=== PATIENT | female | born 1965 | race Caucasian/White ===

== ENCOUNTER 2016-06-19 16:19 | Emergency (ER) | payer MEDICARE, MEDICAID ==
[2016-06-19] MEDS ORDERED: methylPREDNISolone Sod Succ/PF 125 MG/2 ML VIAL ONE (16:37)
[2016-06-19] MEDS ORDERED: diphenhydrAMINE HCl 50 MG/ML 1 ML VIAL ONE ×2 (16:37→16:38)
--- NOTE | 2016-06-19 21:05 | ERRECORD ---
[facility] EMERGENCY RECORD HPI ALLERGY (16:30 DHAM) CHIEF COMPLAINT: Patient presents for evaluation of itching, Patient presents for evaluation of shortness of breath, Patient presents for evaluation of tongue swelling. HISTORIAN: History provided by patient, Pt was stung by a bee 15 minutes ago at home and used her epipen within 1-2 minutes as she has had anaphylaxis "maybe 10 times." she feels sob, and is itching all over and like her tongue is swelling. She feels better now than she did at home. The stinger is still in her left upper arm. LOCATION: Symptoms are generalized. QUALITY: Dermal and respiratory, Throat tightness. SEVERITY: Current severity of pain rated as 0/10. TIME COURSE: Sudden onset of symptoms, 15, minutes prior to arrival, Symptoms are improving. ASSOCIATED WITH: Associated with rash, Associated with swelling, Associated with wheezing. RISK FACTORS: Patient has had previous allergy reactions, Anaphylactic reaction, ant and bee stings x 10 or so. RELIEVED BY: Patient's condition relieved by epinephrine pen. ROS (16:36 DHAM) CONSTITUTIONAL: Historian denies chills, denies fever. EYES: Historian denies eye pain, denies eye redness, denies eye discharge, reports itching. ENT: Historian reports rhinorrhea, reports voice changes. tongue swelling. CARDIOVASCULAR: Historian denies chest pain, denies diaphoresis, denies palpitations. RESPIRATORY: Historian denies cough, reports shortness of breath, denies sputum, denies stridor, reports wheezing. GI: Historian denies abdominal pain, denies nausea, denies vomiting. MUSCULOSKELETAL: Historian denies arthralgias, denies back pain, denies fall, denies injury. SKIN: Historian reports pruritis, bee stinger in left upper arm. NEUROLOGIC: Negative neurologic review of systems, Historian denies focal weakness, denies headache, denies mental status changes, denies paresthesias, denies seizures. ALLERGIC/IMMUNOLOGIC: h/o prior anaphylaxis. PAST MEDICAL HISTORY (16:31 ASA) MEDICAL HISTORY: Flu vaccine up to date, Tetanus immunization up to date, Pneumococcal vaccine up to date, Past medical history includes history of hypertension, musculoskeletal disorder. chronic back pain, Past medical history includes history of obesity, pulmonary disease. asthma, chronic bronchitis. &a-1R&a+25V*p+0X*[id number]*c202B*c15G*c2P*p-0X&a-25V&a+1R Name: Valerie Irwin : 1965 F51 MedRec: [id number] AcctNum: [id number] Prepared: SatJun 19, 2016 23:18 by Interface Page 1 of 5 pMD [facility] EMERGENCY RECORD FEMALE SURGICAL HISTORY: tumor removal, Surgical history of cholecystectomy, Surgical history of section, Surgical history of hysterectomy, Surgical history of orthopedic surgery, back x 5, Surgical history of tonsillectomy. PSYCHIATRIC HISTORY: Psychiatric history includes, anxiety, no history of suicidal ideations. SOCIAL HISTORY: Patient denies alcohol use, Patient denies drug use, Patient currently uses tobacco, smokes cigarettes, daily, Patient smokes 1/2 packs per day. KNOWN ALLERGIES No Known Drug Allergies CURRENT MEDICATIONS Lyrica: CAPSULE : Strength - 150 mg : ORAL Patient Dose: Oral. (16:32 ASAH) tiZANidine: CAPSULE : Strength - 4 mg : ORAL Patient Dose: Oral. (16:33 ASAH) traMADol: TABLET, EXTENDED RELEASE 24 HR : Strength - 300 mg : ORAL Patient Dose: Unknown. (16:34 ASAH) lisinopril: TABLET : Strength - 20 mg : ORAL Patient Dose: Oral. (16:34 ASAH) oxyCODONE: TABLET : Strength - 10 mg : ORAL Patient Dose: Oral As Needed. (16:35 ASAH) CeleBREX: CAPSULE : Strength - 200 mg : ORAL Patient Dose: Oral 2 times a day (before meals). (16:35 ASAH) Xanax: TABLET : Strength - 0.25 mg : ORAL Patient Dose: Oral As Needed. (16:35 ASAH) VITAL SIGNS VITAL SIGNS: BP: 83667/, Pulse: 72, Resp: 18, Temp: 98.0 (Oral), Pain: 0, O2 sat: 96, Time: 06/19/2016 16:20. (16:20 ASAH) BP: 173/96, Pulse: 65, Resp: 22, Pain: 0, Time: 06/19/2016 16:58. (16:58 ASAH) BP: 140/83, Pulse: 72, Resp: 22 (Non-Labored), Pain: 0, O2 sat: 96 on Room Air, Time: 06/19/2016 17:16. (17:16 LGIB) BP: 143/85, Pulse: 63, Resp: 19, O2 sat: 96, Time: 06/19/2016 18:50. (18:50 ASAH) BP: 118/97 (Right Arm), Pulse: 66, Resp: 21 (Non-Labored), Pain: 0, O2 sat: 95 on Room Air, Time: 06/19/2016 19:30. (19:30 AADK) BP: 111/81, Pulse: 66, Resp: 17, Temp: 97.6, Pain: 0, O2 sat: 95 on RA, &a-1R&a+25V*p+0X*k6228B*c202B*c15G*c2P*p-0X&a-25V&a+1R Name: Valerie Irwin : 1965 F51 MedRec: [id number] AcctNum: [id number] Prepared: Allie Jun 19, 2016 23:18 by Interface Page 2 of 5 pMD [facility] EMERGENCY RECORD Time: 06/19/2016 19:55. (19:55 AADK) PHYSICAL EXAM (16:45 DHAM) CONSTITUTIONAL: Vital Signs Reviewed, Patient afebrile, Pulse normal, Blood pressure normal, Respiratory rate normal, Normal pulse oximetry, Patient appears non toxic, Patient appears pain free but anxious and her voice is raspy, Patient alert and oriented to person, place and time, Nursing notes reviewed. HEAD: Head exam included findings of head atraumatic, normocephalic. EYES: Eye exam included findings of eyelids normal to inspection, Pupils equally round and reactive to light, Extraocular muscles intact, Conjunctiva normal, Sclera normal, Eye exam included findings of anterior chamber clear. ENT: Ear exam normal, external ear normal, tympanic membranes normal, no foreign body, no drainage, no bleeding, hearing normal, Nose exam normal, no nasal deformity, no bleeding from nares, no bleeding from hypopharynx, no foreign body visualized, no septal hematoma, no septal necrosis, No turbinate mucosa discharge, Pharynx exam normal, not injected, no swelling, symmetrical, Uvula exam normal, midline, no edema, Tonsil exam normal, not enlarged, no exudates, Mouth exam normal, mucous membranes moist, no drooling, no lesions, no lacerations, no tongue elevation, teeth normal. I do not appreciate any tongue swelling but she feels it subjectively. NECK: Neck exam included findings of normal range of motion, Trachea midline, Thyroid normal, no meningeal signs, no cervical adenopathy, no tenderness, no contusions, no ecchymosis. RESPIRATORY CHEST: Respiratory exam included findings of no respiratory distress, Breath sounds clear, rare diffuse wheezing, No rales, No rhonchi, Breath sounds moderately diminished diffusely, Chest exam included findings of chest movement symmetrical. CARDIOVASCULAR: Cardiovascular exam included findings of heart rate regular rate and rhythm, Heart sounds normal, normal S1, normal S2, no murmurs, no rub, no gallop. ABDOMEN FEMALE: Abdominal exam included findings of abdomen nontender, Bowel sounds normal, Liver normal, Spleen normal, no distension, no pulsatile masses, no peritoneal signs, no ventral hernia, obese. BACK: Back exam normal. UPPER EXTREMITY: Upper extremity exam normal, Upper extremity exam included findings of inspection normal, no abrasions, no contusions, no deformity, no lacerations, Range of motion normal, Motor strength normal, Sensation intact, Brachial pulse normal, Radial pulse normal. LOWER EXTREMITY: Lower extremity exam normal, Lower extremity exam included findings of inspection normal, no abrasions, no contusions, no deformity, no lacerations, Range of motion normal, Motor strength normal, Sensation intact, Pedal pulse normal, Silver's negative, no edema, no calf tenderness. NEURO: Neuro exam findings include patient oriented to person, &a-1R&a+25V*p+0X*f0718N*c202B*c15G*c2P*p-0X&a-25V&a+1R Name: Valerie Irwin : 1965 F51 MedRec: [id number] AcctNum: [id number] Prepared: Allie Jun 19, 2016 23:18 by Interface Page 3 of 5 pMD [facility] EMERGENCY RECORD place and time, Speech normal, Gait normal, Jaime coma scale 15, Memory normal, Cranial nerves intact, Deep tendon reflexes normal, no focal motor deficits, no focal sensory deficits. SKIN: Skin exam included findings of skin warm, dry, and normal in color, no rash. She did have a bee stinger in the left upper arm medially that I removed easily with forceps. LYMPHATIC: Lymphatic exam normal, Lymphatic exam included findings of cervical nodes normal. MEDICATION ADMINISTRATION SUMMARY Drug Name: methylPREDNISolone sodium succ injection, Dose Ordered: 125 mg, Route: IV Push, Status: Given, Time: 16:46 06/19/2016, Drug Name: diphenhydrAMINE injection, Dose Ordered: 50 mg, Route: IV Push, Status: Given, Time: 16:45 06/19/2016, Drug Name: *EPINEPHrine injection, Dose Ordered: 0.3 mg, Route: Intramuscular, Status: Given, Time: 16:28 06/19/2016, *Additional information available in notes, Detailed record available in Medication Service section. DOCTOR NOTES TEXT: Pt arrived 15 min after self dosing her 0.3mg epipen SQ. Given her raspy voice and wheezing and diffuse itching, I did redose to assure good IM dosing. Her pulse was in the low 70's. IV is started and she is aware of prolonged observation. I have given her a prescription for epipen so that she can have one when she leaves this evening. (16:50 DHAM) Pt has had no further wheezing and her voice is much less raspy. She never dropped her blood pressure and has been stable without evidence of rebound. she has an epipen at home and has never had an episode of rebound after using her pen. (19:40 DHAM) PROBLEM LIST No recorded problems DIAGNOSIS (19:44 DHAM) FINAL: PRIMARY: Anaphylaxis. PRESCRIPTION (16:42 DHAM) Epi E-Z Pen: AUTO-INJECTOR (EA) : 0.3 mg/0.3 mL (1:1,000) : INJECTION : Quantity: 0.3 Unit: mg Route: INJECTION Schedule: As Needed Dispense: 2 Unit: ea May substitute. Refills: No Refills . NOTES: use at first sign of anaphylaxis No refills. DISPOSITION PATIENT: Disposition Type: Discharge, Disposition: *Discharge Home. (19:44 DHAM) Patient left the department. (20:01 AADK) &a-1R&a+25V*p+0X*l1075A*c202B*c15G*c2P*p-0X&a-25V&a+1R Name: Valerie Irwin : 1965 [facility] MedRec: [id number] AcctNum: [id number] Prepared: SatJun 19, 2016 23:18 by Interface Page 4 of 5 pMD [facility] EMERGENCY RECORD Mckeon: SENG=ELMO Nova, Mikki ALTAMIRANO=ELMO [place], Zeina RACHANA=MD Taj, Aaron LGIB=ELMO Quiroz, Jasmin &a-1R&a+25V*p+0X*[id number]*c202B*c15G*c2P*p-0X&a-25V&a+1R Name: Valerie Irwin : 1965 [facility] MedRec: [id number] AcctNum: [id number] Prepared: SatJun 19, 2016 23:18 by Interface Page 5 of 5 pMD MTDD
--- NOTE | 2016-06-19 21:08 | PICIS ---
[facility] EMERGENCY RECORD TRIAGE (SatJun 19, 2016 16:27 ASAH) TRIAGE NOTES: pt was stung by a bee and used epi pen while at home. c/o tongue swelling. (SatJun 19, 2016 16:27 ASAH) PATIENT: NAME: Valerie Irwin, AGE: 51, GENDER: female, : Sat1965, TIME OF GREET: SatJun 19, 2016 16:19, PREFERRED LANGUAGE: Slovenian, ETHNICITY: Not or , ECODE BILLING MAP: [facility], SSN: [id number], Zip Code: [address], KG WEIGHT: 106.59, PHONE: , , , PERSON ID: [id number], PAYMENT: [employer], PCP: Kacey Graham Justin. (SatJun 19, 2016 16:27 ASA) COMPLAINT: Allergic Reaction. (SatJun 19, 2016 16:27 ASAH) ADMISSION: URGENCY: 3 Urgent, ADMISSION SOURCE: Home, TRANSPORT: CAR, BED: ER -01. (SatJun 19, 2016 16:27 ASAH) PAIN: No complaint of pain. (16:31 ASAH) IMMUNIZATIONS: Flu vaccine up to date, Tetanus immunization up to date, Pneumococcal vaccine up to date. (16:31 ASAH) SIRS SCORING: Heart Rate 55-109 (0), Temp range 96.8-101.1 (0), respiratory rate 12-24 (0), Mental status altered: yes (1), Infection or Suspected Infection: No. (16:31 ASAH) TRIAGE SCREENING: Patient denies suicidal ideation, Patient denies presence of domestic violence. (16:31 ASAH) LMP: LMP: Hysterectomy. (16:31 ASAH) PROVIDERS: TRIAGE NURSE: Tara France RN. (SatJun 19, 2016 16:27 ASAH) V[place] SIGNS: BP 52488/, Pulse 72, Resp 18, Temp 98.0, (Oral), Pain 0, O2 Sat 96, Time 06/19/2016 16:20. (16:20 ASAH) KNOWN ALLERGIES No Known Drug Allergies CURRENT MEDICATIONS Lyrica: CAPSULE : Strength - 150 mg : ORAL Patient Dose: Oral. (16:32 ASAH) tiZANidine: CAPSULE : Strength - 4 mg : ORAL Patient Dose: Oral. (16:33 ASAH) traMADol: TABLET, EXTENDED RELEASE 24 HR : Strength - 300 mg : ORAL Patient Dose: Unknown. (16:34 ASAH) lisinopril: TABLET : Strength - 20 mg : ORAL Patient Dose: Oral. (16:34 ASAH) oxyCODONE: TABLET : Strength - 10 mg : ORAL Patient Dose: Oral As Needed. (16:35 ASAH) CeleBREX: CAPSULE : Strength - 200 mg : ORAL Patient Dose: Oral 2 times a day (before meals). (16:35 &a-1R&a+25V*p+0X*e5757L*c202B*c15G*c2P*p-0X&a-25V&a+1R Name: Valerie Irwin : 1965 F51 MedRec: [id number] AcctNum: [id number] Prepared: Allie Jun 19, 2016 23:25 by Interface Page 1 of 9 pMD [facility] EMERGENCY RECORD [facility]) Xanax: TABLET : Strength - 0.25 mg : ORAL Patient Dose: Oral As Needed. (16:35 ASAH) VITAL SIGNS VITAL SIGNS: BP: 92918/, Pulse: 72, Resp: 18, Temp: 98.0 (Oral), Pain: 0, O2 sat: 96, Time: 06/19/2016 16:20. (16:20 ASAH) BP: 173/96, Pulse: 65, Resp: 22, Pain: 0, Time: 06/19/2016 16:58. (16:58 ASAH) BP: 140/83, Pulse: 72, Resp: 22 (Non-Labored), Pain: 0, O2 sat: 96 on Room Air, Time: 06/19/2016 17:16. (17:16 LGIB) BP: 143/85, Pulse: 63, Resp: 19, O2 sat: 96, Time: 06/19/2016 18:50. (18:50 ASAH) BP: 118/97 (Right Arm), Pulse: 66, Resp: 21 (Non-Labored), Pain: 0, O2 sat: 95 on Room Air, Time: 06/19/2016 19:30. (19:30 AADK) BP: 111/81, Pulse: 66, Resp: 17, Temp: 97.6, Pain: 0, O2 sat: 95 on RA, Time: 06/19/2016 19:55. (19:55 AADK) NURSING ASSESSMENT: ALLERGIC REACTION (16:33 LGIB) CONSTITUTIONAL: Complex assessment performed, Patient arrives ambulatory, Gait steady, History obtained from patient, Patient appears comfortable, Patient cooperative, Patient alert, Oriented to person, place and time, Skin warm, Skin dry, Skin normal in color, Mucous membranes pink, Mucous membranes moist, Patient is well-groomed, Patient complains of bee sitng, allergic reaction, pt has an anaphylactic reaction to bee stings. pt was stung by a bee PERMANENT WAVER and used her epi-pen. pt with patent airway on arrival. ALLERGIC REACTION: Allergic reaction to known allergen, bee sting, Past episodes of allergic reactions, to insect, Allergic reaction symptoms include no difficulty breathing, Allergic reaction symptoms include no difficulty swallowing, Allergic reaction symptoms include no hives, Allergic reaction symptoms include no localized swelling, Allergic reaction symptoms include no rash, Allergic reaction symptoms include no swelling to extremities, Allergic reaction symptoms include no swelling to eyes, Allergic reaction symptoms include no swelling to face, Allergic reaction symptoms include no swelling to mouth, Allergic reaction symptoms include no wheezing, Symptoms relieved by epi-pen use, Date and time taken: 06/19/2016 1605. RESPIRATORY: Breath sounds clear, Respiratory assessment findings include respiratory effort easy, Respirations regular, Conversing normally, Neck and chest exam findings include trachea midline, Chest expansion equal, Chest movement symmetrical, no signs of distress, no retractions noted, no cyanosis. SKIN: Skin assessment findings include skin warm, Skin dry, Skin normal in color. SAFETY: Side rails up, Cart/Stretcher in lowest position, Call light within reach, Hospital ID band on. &a-1R&a+25V*p+0X*f8891D*c202B*c15G*c2P*p-0X&a-25V&a+1R Name: Valerie Irwin : 1965 F51 MedRec: [id number] AcctNum: [id number] Prepared: Allie Jun 19, 2016 23:25 by Interface Page 2 of 9 pMD [facility] EMERGENCY RECORD NURSING PROCEDURE: COVER CUTTER MACHINE (16:27 LGIB) COVER CUTTER MACHINE: Patient placed on athletic monitor, Patient placed on non-invasive blood pressure monitor, Patient placed on continuous pulse oximetry. NURSING PROCEDURE: DISCHARGE NOTE (19:55 AADK) DISCHARGE: Patient discharged to home, ambulating without assistance, family driving, unaccompanied, Summary of Care printed/ provided, Patient requested and was provided an electronic copy of Discharge Instructions, Transition record given to patient, Discharge instructions given to patient, Simple or moderate discharge teaching performed, Prescriptions given and instructions on side effects given, Above person(s) verbalized understanding of discharge instructions and follow-up care, Notes: PT'S SPOUSE ALREADY TOOK EPI PEN RX DURING [phone] SHIFT TO GET IT FILLED. BELONGINGS: Belongings remain with patient, Valuables remain with patient. VITAL SIGNS: BP: 111, / 81, Pulse: 66, Resp: 17, Temp: 97.6, Pain: 0, O2 sat: 95, on: RA, Time: 1944. NURSING PROCEDURE: IV IV SITE 1: IV therapy indicated for medication administration, IV established, to the left wrist, using a 22 gauge catheter, in three attempts, Saline lock established, Flushed with normal saline (mls): 10. (16:38 LGIB) FOLLOW-UP SITE 1: After procedure, 2x2 dressing applied, IV discontinued, due to patient being discharged, catheter intact, Notes: NO ACTIVE BLEEDING NOTED. 2X2'S SECURED WITH COBAN. (19:50 AADK) NURSING PROCEDURE: NURSE NOTES NURSES NOTES: Notes: PT RESTING SUPINE IN NO ACUTE DISTRESS. PT BREATHING REGULAR AND UNLABORED. PT DENIES PAIN AND DENIES ANY NEEDS AT THIS TIME. WILL CONTINUE TO MONITOR. (18:50 ASAH) Notes: REPORT GIVEN TO ELMO VALDEZ. PT IN NAD, RR EVEN AND UNLABORED. (19:02 LGIB) Patient is improving, Patient in no apparent distress, Beverage given to patient, Notes: PT RESTING QUIETLY. NO C/O VOICED. ASKED FOR DRINK, OK PER DR EDDY. PT REQUESTED SWEET TEA AND IT WAS SERVED TO PT. SR UP X2 AND CALL LIGHT IN REACH. (19:19 AADK) VITAL SIGNS: BP: 173, / 96, Pulse: 65, Resp: 22, Pain: 0. (16:58 ASAH) BP: 143, / 85, Pulse: 63, Resp: 19, O2 sat: 96. (18:50 ASAH) ORDER DETAILS Order Name: RBC Sedimentation Rate (ESR), Status: Canceled, Time: 19:49 06/19/2016, User: System, - Ordered for: MD Eddy Darren, - Entered by: MD Eddy Darren - SatJun 19, 2016 19:42, &a-1R&a+25V*p+0X*v2134V*c202B*c15G*c2P*p-0X&a-25V&a+1R Name: Valerie Irwin : 1965 F51 MedRec: [id number] AcctNum: [id number] Prepared: SatJun 19, 2016 23:25 by Interface Page 3 of 9 D [facility] EMERGENCY RECORD - Quantity: 1. MEDICATION ADMINISTRATION SUMMARY Drug Name: methylPREDNISolone sodium succ injection, Dose Ordered: 125 mg, Route: IV Push, Status: Given, Time: 16:46 06/19/2016, Drug Name: diphenhydrAMINE injection, Dose Ordered: 50 mg, Route: IV Push, Status: Given, Time: 16:45 06/19/2016, Drug Name: *EPINEPHrine injection, Dose Ordered: 0.3 mg, Route: Intramuscular, Status: Given, Time: 16:28 06/19/2016, *Additional information available in notes, Detailed record available in Medication Service section. MEDICATION SERVICE diphenhydrAMINE injection: Order: diphenhydrAMINE injection (diphenhydramine HCl) - Dose: 50 mg : IV Push Schedule: Now Ordered by: Aaron Eddy MD Entered by: Aaron Eddy MD SatJun 19, 2016 16:29 , Acknowledged by: Traa France RN SatJun 19, 2016 16:36 Documented as given by: Tara France RN SatJun 19, 2016 16:45 Patient, Medication, Dose, Route and Time verified prior to administration. Amount given: 50mg, Amount wasted: 0, IV SITE #1 IVP, initial medication, Slowly, Catheter placement confirmed via flush prior to administration, IV site without signs or symptoms of infiltration during medication administration, No swelling during administration, No drainage during administration, IV flushed after administration, Correct patient, time, route, dose and medication confirmed prior to administration, Patient advised of actions and side-effects prior to administration, Allergies confirmed and medications reviewed prior to administration, Administered by elmo pacheco, Patient in position of comfort, Side rails up, Cart in lowest position. : Follow Up : Response assessment performed, No signs or symptoms of allergic reaction noted, Decreased symptoms, _IV SITE #1:_. (19:55 AADK) EPINEPHrine injection: Order: EPINEPHrine injection (epinephrine) - Dose: 0.3 mg : Intramuscular Schedule: Now Notes: 1:1000 Ordered by: Aaron Eddy MD Entered by: Aaron Eddy MD SatJun 19, 2016 16:29 Documented as given by: Jasmin Quiroz RN SatJun 19, 2016 16:28 Patient, Medication, Dose, Route and Time verified prior to administration. IM medication, Medication administered to right deltoid, Correct patient, time, route, dose and medication confirmed prior to administration, Patient advised of actions and side-effects prior to administration, Allergies confirmed and medications reviewed prior to administration, Patient in position of comfort, Side rails up, Cart &a-1R&a+25V*p+0X*v8386P*c202B*c15G*c2P*p-0X&a-25V&a+1R Name: Valerie Irwin : 1965 F51 MedRec: [id number] AcctNum: [id number] Prepared: SatJun 19, 2016 23:25 by Interface Page 4 of 9 pMD [facility] EMERGENCY RECORD in lowest position, Co-signed by: Tara France RN SatJun 19, 2016 16:47. : Follow Up : Response assessment performed, No signs or symptoms of allergic reaction noted, Decreased symptoms. (19:55 AADK) methylPREDNISolone sodium succ injection: Order: methylPREDNISolone sodium succ injection (methylprednisolone sod succ) - Dose: 125 mg : IV Push Ordered by: Aaron Eddy MD Entered by: Aaron Eddy MD SatJun 19, 2016 16:29 , Acknowledged by: Tara France RN SatJun 19, 2016 16:36 Documented as given by: Tara France RN SatJun 19, 2016 16:46 Patient, Medication, Dose, Route and Time verified prior to administration. Amount given: 125mg, Amount wasted: 125mg, IV SITE #1 IVP, initial medication, Slowly, Catheter placement confirmed via flush prior to administration, IV site without signs or symptoms of infiltration during medication administration, No swelling during administration, No drainage during administration, IV flushed after administration, Correct patient, time, route, dose and medication confirmed prior to administration, Patient advised of actions and side-effects prior to administration, Allergies confirmed and medications reviewed prior to administration, Administered by tara rn, Patient in position of comfort, Side rails up, Cart in lowest position. : Follow Up : Response assessment performed, No signs or symptoms of allergic reaction noted, Decreased symptoms, _IV SITE #1:_. (19:55 AADK) HPI ALLERGY (16:30 DHAM) CHIEF COMPLAINT: Patient presents for evaluation of itching, Patient presents for evaluation of shortness of breath, Patient presents for evaluation of tongue swelling. HISTORIAN: History provided by patient, Pt was stung by a bee 15 minutes ago at home and used her epipen within 1-2 minutes as she has had anaphylaxis "maybe 10 times." she feels sob, and is itching all over and like her tongue is swelling. She feels better now than she did at home. The stinger is still in her left upper arm. LOCATION: Symptoms are generalized. QUALITY: Dermal and respiratory, Throat tightness. SEVERITY: Current severity of pain rated as 0/10. TIME COURSE: Sudden onset of symptoms, 15, minutes prior to arrival, Symptoms are improving. ASSOCIATED WITH: Associated with rash, Associated with swelling, Associated with wheezing. RISK FACTORS: Patient has had previous allergy reactions, Anaphylactic reaction, ant and bee stings x 10 or so. RELIEVED BY: Patient's condition relieved by epinephrine pen. ROS (16:36 DHAM) &a-1R&a+25V*p+0X*s2623H*c202B*c15G*c2P*p-0X&a-25V&a+1R Name: Valerie Irwin : 1965 F51 MedRec: [id number] AcctNum: [id number] Prepared: Allie Jun 19, 2016 23:25 by Interface Page 5 of 9 pMD [facility] EMERGENCY RECORD CONSTITUTIONAL: Historian denies chills, denies fever. EYES: Historian denies eye pain, denies eye redness, denies eye discharge, reports itching. ENT: Historian reports rhinorrhea, reports voice changes. tongue swelling. CARDIOVASCULAR: Historian denies chest pain, denies diaphoresis, denies palpitations. RESPIRATORY: Historian denies cough, reports shortness of breath, denies sputum, denies stridor, reports wheezing. GI: Historian denies abdominal pain, denies nausea, denies vomiting. MUSCULOSKELETAL: Historian denies arthralgias, denies back pain, denies fall, denies injury. SKIN: Historian reports pruritis, bee stinger in left upper arm. NEUROLOGIC: Negative neurologic review of systems, Historian denies focal weakness, denies headache, denies mental status changes, denies paresthesias, denies seizures. ALLERGIC/IMMUNOLOGIC: h/o prior anaphylaxis. PAST MEDICAL HISTORY (16:31 ASA) MEDICAL HISTORY: Flu vaccine up to date, Tetanus immunization up to date, Pneumococcal vaccine up to date, Past medical history includes history of hypertension, musculoskeletal disorder. chronic back pain, Past medical history includes history of obesity, pulmonary disease. asthma, chronic bronchitis. FEMALE SURGICAL HISTORY: tumor removal, Surgical history of cholecystectomy, Surgical history of section, Surgical history of hysterectomy, Surgical history of orthopedic surgery, back x 5, Surgical history of tonsillectomy. PSYCHIATRIC HISTORY: Psychiatric history includes, anxiety, no history of suicidal ideations. SOCIAL HISTORY: Patient denies alcohol use, Patient denies drug use, Patient currently uses tobacco, smokes cigarettes, daily, Patient smokes 1/2 packs per day. PHYSICAL EXAM (16:45 DHAM) CONSTITUTIONAL: Vital Signs Reviewed, Patient afebrile, Pulse normal, Blood pressure normal, Respiratory rate normal, Normal pulse oximetry, Patient appears non toxic, Patient appears pain free but anxious and her voice is raspy, Patient alert and oriented to person, place and time, Nursing notes reviewed. HEAD: Head exam included findings of head atraumatic, normocephalic. EYES: Eye exam included findings of eyelids normal to inspection, Pupils equally round and reactive to light, Extraocular muscles intact, Conjunctiva normal, Sclera normal, Eye exam included findings &a-1R&a+25V*p+0X*d4383G*c202B*c15G*c2P*p-0X&a-25V&a+1R Name: Valerie Irwin : 1965 F51 MedRec: [id number] AcctNum: [id number] Prepared: SatJun 19, 2016 23:25 by Interface Page 6 of 9 pMD [facility] EMERGENCY RECORD of anterior chamber clear. ENT: Ear exam normal, external ear normal, tympanic membranes normal, no foreign body, no drainage, no bleeding, hearing normal, Nose exam normal, no nasal deformity, no bleeding from nares, no bleeding from hypopharynx, no foreign body visualized, no septal hematoma, no septal necrosis, No turbinate mucosa discharge, Pharynx exam normal, not injected, no swelling, symmetrical, Uvula exam normal, midline, no edema, Tonsil exam normal, not enlarged, no exudates, Mouth exam normal, mucous membranes moist, no drooling, no lesions, no lacerations, no tongue elevation, teeth normal. I do not appreciate any tongue swelling but she feels it subjectively. NECK: Neck exam included findings of normal range of motion, Trachea midline, Thyroid normal, no meningeal signs, no cervical adenopathy, no tenderness, no contusions, no ecchymosis. RESPIRATORY CHEST: Respiratory exam included findings of no respiratory distress, Breath sounds clear, rare diffuse wheezing, No rales, No rhonchi, Breath sounds moderately diminished diffusely, Chest exam included findings of chest movement symmetrical. CARDIOVASCULAR: Cardiovascular exam included findings of heart rate regular rate and rhythm, Heart sounds normal, normal S1, normal S2, no murmurs, no rub, no gallop. ABDOMEN FEMALE: Abdominal exam included findings of abdomen nontender, Bowel sounds normal, Liver normal, Spleen normal, no distension, no pulsatile masses, no peritoneal signs, no ventral hernia, obese. BACK: Back exam normal. UPPER EXTREMITY: Upper extremity exam normal, Upper extremity exam included findings of inspection normal, no abrasions, no contusions, no deformity, no lacerations, Range of motion normal, Motor strength normal, Sensation intact, Brachial pulse normal, Radial pulse normal. LOWER EXTREMITY: Lower extremity exam normal, Lower extremity exam included findings of inspection normal, no abrasions, no contusions, no deformity, no lacerations, Range of motion normal, Motor strength normal, Sensation intact, Pedal pulse normal, Silver's negative, no edema, no calf tenderness. NEURO: Neuro exam findings include patient oriented to person, place and time, Speech normal, Gait normal, Nemacolin coma scale 15, Memory normal, Cranial nerves intact, Deep tendon reflexes normal, no focal motor deficits, no focal sensory deficits. SKIN: Skin exam included findings of skin warm, dry, and normal in color, no rash. She did have a bee stinger in the left upper arm medially that I removed easily with forceps. LYMPHATIC: Lymphatic exam normal, Lymphatic exam included findings of cervical nodes normal. EVENTS TRANSFER: Triage to Emergency Emergency Room -. (SatJun 19, 2016 16:27 ASAH) Removed from Emergency Emergency Room -01. (20:01 AADK) &a-1R&a+25V*p+0X*t0218G*c202B*c15G*c2P*p-0X&a-25V&a+1R Name: Valerie Irwin : 1965 F51 MedRec: [id number] AcctNum: [id number] Prepared: SatJun 19, 2016 23:25 by Interface Page 7 of 9 pMD [facility] EMERGENCY RECORD O2SAT INTERPRETATION (16:49 DHAM) O2SAT: Single pulse oximetry, Oxygen saturation 96%, on room air, Oxygen saturation interpretation: Normal, No intervention required. DOCTOR NOTES TEXT: Pt arrived 15 min after self dosing her 0.3mg epipen SQ. Given her raspy voice and wheezing and diffuse itching, I did redose to assure good IM dosing. Her pulse was in the low 70's. IV is started and she is aware of prolonged observation. I have given her a prescription for epipen so that she can have one when she leaves this evening. (16:50 DHAM) Pt has had no further wheezing and her voice is much less raspy. She never dropped her blood pressure and has been stable without evidence of rebound. she has an epipen at home and has never had an episode of rebound after using her pen. (19:40 DHAM) PROBLEM LIST No recorded problems DIAGNOSIS (19:44 DHAM) FINAL: PRIMARY: Anaphylaxis. DISPOSITION PATIENT: Disposition Type: Discharge, Disposition: *Discharge Home. (19:44 DHAM) Patient left the department. (20:01 AADK) INSTRUCTION (19:45 DHAM) DISCHARGE: ANAPHYLAXIS, GENERAL. FO[facility]UP: [facility] Graham, [facility] [address], [place] [facility] [address], . SPECIAL: Use your epipen as indicated at first sign of anaphylaxis and come to ER if used. Return for any concerns and continue to avoid bees and ants. PRESCRIPTION (16:42 DHAM) Epi E-Z Pen: AUTO-INJECTOR (EA) : 0.3 mg/0.3 mL (1:1,000) : INJECTION : Quantity: 0.3 Unit: mg Route: INJECTION Schedule: As Needed Dispense: 2 Unit: ea May substitute. Refills: No Refills . NOTES: use at first sign of anaphylaxis No refills. IMAGING *DISCHARGE INSTRUCTIONS RECEIPT: Image captured from scanner. (19:56 AADK) *SUPPLY CHARGE SHEET: Image captured from scanner. (19:56 AADK) MONITOR STRIPS: Image captured from scanner. (19:58 AADK) &a-1R&a+25V*p+0X*e3268P*c202B*c15G*c2P*p-0X&a-25V&a+1R Name: Valerie Irwin : 1965 [facility] MedRec: [id number] AcctNum: [id number] Prepared: Allie Jun 19, 2016 23:25 by Interface Page 8 of 9 pMD [facility] EMERGENCY RECORD ADMIN (23:13 DHAM) DIGITAL SIGNATURE: MD Eddy Darren. Mckeon: AADK=ELMO Nova, Mikki ASAH=ELMO France, September DHAM=MD Eddy Darren LGIB=ELMO Quiroz, Jasmin &a-1R&a+25V*p+0X*s5582P*c202B*c15G*c2P*p-0X&a-25V&a+1R Name: Valerie Irwin : 1965 [facility] MedRec: [id number] AcctNum: [id number] Prepared: Allie Jun 19, 2016 23:25 by Interface Page 9 of 9 pMD MTDD
== END 2016-06-19 19:55 | disposition home or self-care (01) ==
LOC: BURERS 16:19
DX: T44.5X1A Poisoning by predominantly beta-adrenoreceptor agonists, accidental (unintentional), initial encounter (principal); T78.2XXA Anaphylactic shock, unspecified, initial encounter; I10 Essential (primary) hypertension; J45.909 Unspecified asthma, uncomplicated; F17.210 Nicotine dependence, cigarettes, uncomplicated
CPT/HCPCS: 96372; 96374; 96375; J1200; J2930

== ENCOUNTER 2016-10-18 10:01 | Emergency (ER) | payer MEDICARE, MEDICAID ==
[2016-10-18] MEDS ORDERED: Nitroglycerin 0.4 MG TAB (25 Tab Bottle) ONE (10:27)
[2016-10-18 10:42] LABS: #Basophils 0.1 thou/uL (0.0-0.2); #Eosinphils 0.2 thou/uL (0.0-0.7); #Monocytes 0.6 thou/uL (0.11-0.59); %Eosinophils 2.1 % (0.0-10.0); %Lymphocytes 27.1 % (21.0-51.0); %Monocytes 5.7 % (0.0-10.0); Hemoglobin 15.3 g/dL (12.0-16.0); Mean Corpuscular HGB CONC 33.6 g/dL (32.0-36.0); Mean Corpuscular Hemoglobin 30.3 pg (27.0-31.0); Mean Corpuscular Volume 90.1 fl (81.0-99.0); Mean Platelet Volume 11.7 fL (7.4-10.4); Platelet Count 214 thou/uL (130-400); RBC Distribution Width 12.7 % (11.5-14.5); Red Blood Cell (RBC) Count 5.07 mill/uL (4.20-5.40)
[2016-10-18 10:47] LABS: ALT (SGPT) 12 U/L (8-55); AST (SGOT) 11 U/L (5-34); Alkaline Phosphatase 68 U/L (40-150); Anion Gap 13 mmol/L (10-20); BUN (Urea Nitrogen) 15 mg/dL (9.8-20.1); Bilirubin, Total 0.5 mg/dL (0.2-1.2); Calc. Creatinine Clearance 0 mL/min (70-130); Calcium 9.2 mg/dL (7.8-10.44); Carbon Dioxide 23 mmol/L (22-29); Chloride 104 mmol/L (98-107); Estimated GFR-MDRD 77; Globulin 3.6 g/dL (2.4-3.5); Glucose 99 mg/dL (70-105); Potassium 3.8 mmol/L (3.5-5.1); Protein, Total 7.6 g/dL (6.0-8.3); Sodium 136 mmol/L (136-145)
[2016-10-18 10:54] LABS: CKMB 0.7 ng/mL (0-6.6); Troponin I Less than 0.010 ng/mL (< 0.028)
--- NOTE | 2016-10-18 21:22 | RAD ---
PORTABLE CHEST 10/18/16 An AP portable film at 1021 is presented with no prior films available for comparison. The heart is normal in size for body habitus and portable AP filming. There is no vascular congestio n, edema, or pleural effusion. No lobar consolidation was seen. A little streaking is noted in the r ight cardiophrenic angle that is more likely either atelectasis or chronic than anything acute. The lungs are otherwise clear. The trachea is midline. IMPRESSION: No acute thoracic findings. POS: HOME
== END 2016-10-18 11:30 | disposition short-term general hospital (02) ==
LOC: BURERS 10:01
DX: R07.2 Precordial pain (principal); I10 Essential (primary) hypertension; J45.909 Unspecified asthma, uncomplicated; F41.9 Anxiety disorder, unspecified; F17.210 Nicotine dependence, cigarettes, uncomplicated; Z79.899 Other long term (current) drug therapy; Z79.891 Long term (current) use of opiate analgesic
CPT/HCPCS: 71010; 80053; 82553; 84484; 85025; 93005